=== PATIENT | female | born 1980 | race African-American/Black ===

== ENCOUNTER 2021-03-21 20:36 | Emergency (ER) | payer MEDICAID ==
[~2021-03-21] VITALS: Ht 170.2 cm; Wt 62.7 kg
[2021-03-21 20:43] VITALS: BP 136/87
[2021-03-21] MEDS ORDERED: ACETAMINOPHEN 325MG TABLET PO ONE (21:45)
[2021-03-21] MEDS ORDERED: IBUP-2029 MT (22:32)
== END 2021-03-21 23:54 | disposition home or self-care (01) ==
LOC: ER 20:36
DX: M79.645 Pain in left finger(s) (principal); J44.1 Chronic obstructive pulmonary disease with (acute) exacerbation; Z98.890 Other specified postprocedural states; Z90.49 Acquired absence of other specified parts of digestive tract; Z98.51 Tubal ligation status
CPT/HCPCS: 73130; 81025; 99283